=== PATIENT | male | born 1955 | race African-American/Black ===

== ENCOUNTER 2018-02-08 17:41 | Inpatient (IN) | payer OTHER ==
[~2018-02-08] VITALS: Ht 162.6 cm; Wt 51.7 kg
--- NOTE | ~2018-02-08 | EKG ---
[place] [address] [facility] [place] [address] ELECTROCARDIOGRAM REPORT Name: SINDHU DEAL Room #: 351-P ADM IN M.R.#: [id number] Admission: 02/08/18 Attend Phys: Coco Mcmullen Discharge: Date of : 53 Report #: [id number] THIS REPORT FOR: //name// [facility] ED Test Date: 2018-02-08 Test Time: 17:44:43 Pat Name: SINDHU DEAL Department: Room: Gender: M [employer]on Making Machine Operator: MAYA : 1955 Requested By: Angela Castellanos Order Number: [id number] MD: Urbano Joyner Measurements Intervals [place] Rate: 58 P: 17 WY: 222 QRS: 3 QRSD: 117 T: 244 QT: 531 QTc: 522 Interpretive Statements Sinus rhythm Prolonged WY interval Left atrial enlargement ST and T wave abnormality Prolonged QT interval No previous ECG available for comparison Electronically Signed On 02-09-2018 8:11:56 CDT by Urbano Joyner [email or web address] <ELECTRONICALLY SIGNED> By: Urbano Joyner MD, [facility] 02/09/18 0811 D: [id number] Urbano Joyner MD, [facility] /EPI
--- NOTE | ~2018-02-08 | HC ---
[facility] [place] [address] CONSULTATION Name: SINDHU DEAL Room #: 351-P ADM IN M.R.#: [id number] Admission: 02/08/18 Attend Phys: Coco Mcmullen Discharge: Date of : 53 Report #: [id number] THIS REPORT FOR: //name// CC: Coco Hidalgo REASON FOR CONSULTATION: End-stage renal disease. REASON FOR PRESENTATION: The details are very vague and those were obtained from the medical records. I will need to contact his sister. He presented with fatigue and mental status. Apparently, the patient had been living at [facility]; however, he checked himself out for about a month and family brought him back [facility] facility. Staff noted that the patient has altered mental status and thus he was brought for further evaluation and management. It is not clear to me when did the patient last dialyzed. It is also not clear to me what his baseline mental status is. On presentation, he was found to have a BUN of 163, creatinine of 19.3 and a potassium of 7.3. He was emergently dialyzed last night. I am being asked to manage his end-stage renal disease. The patient is not able to tell me about his past medical history, as I have stated. No records from [facility] were received. He was also found to be severely anemic. PAST MEDICAL HISTORY: 1. End-stage renal disease, maintained on dialysis; however, frequency is not really known, dialysis facility is not really known. 2. Hypertension. 3. Anemia. 4. COPD. 5. Neurocognitive disorder. REVIEW OF SYSTEMS: Unobtainable given the patient's mental status. FAMILY HISTORY: Unobtainable given the patient's mental status. SOCIAL HISTORY: Unobtainable given the patient's mental status. MEDICATIONS: Reported medications from the nursing facility: 1. Lisinopril: 2. Carvedilol. 3. Lasix. 4. Aspirin. 5. Plavix. PHYSICAL EXAMINATION: GENERAL: He is confused. VITAL SIGNS: Revealed a blood pressure of 160/69. Temperature 36.5. HEAD AND NECK: No jugular venous distention. Cachectic, emaciated. CARDIOVASCULAR: No rub. [facility] [address] [address] CONSULTATION Name: SINDHU DEAL Room #: 351-P [facility] IN M.R.#: [id number] Admission: 02/08/18 Attend Phys: Coco Mcmullen Discharge: Date of : 53 Report #: [id number] LUNGS: Decreased air entry bilaterally with no crackles. ABDOMEN: Soft, nontender. LOWER EXTREMITIES: No edema. LABORATORY DATA: Laboratory values reviewed. Hemoglobin 5.8. Chemistry from yesterday revealed a sodium of 137, potassium of 7.3, anion gap of 18, BUN of 163, creatinine of 19.3. IMAGING: Chest x-ray reviewed. CT head negative. ASSESSMENT, IMPRESSION AND PLAN: 1. End-stage renal disease. 2. Hypertension. 3. Anemia. 4. Hyperkalemia. 5. Anion gap acidosis. 6. Dialysis was done yesterday. We will arrange for the patient to have a dialysis treatment today. 7. I need to reach out to his sister, Gena, phone number [phone] to obtain more details about his medical history as I am not familiar with this patient. <ELECTRONICALLY SIGNED> By: Lyndon Pena MD 02/10/18 1138 [id number] [id number] Lyndon Pena MD /nt
[2018-02-08 17:43] VITALS: BP 140/55
[2018-02-08] MEDS ORDERED: IMDUR 30 MG TAB30 M1 PO (18:39)
[2018-02-08] MEDS ORDERED: PROTONIX40 M1 PO (18:39)
[2018-02-08] MEDS ORDERED: LISINOPRIL5 MG PO (18:39)
[2018-02-08] MEDS ORDERED: CRESTOR40 MG PO (18:40)
[2018-02-08] MEDS ORDERED: CARVEDILOL12.5 MG PO (18:40)
[2018-02-08] MEDS ORDERED: LASIX 20 MG TAB20 MG PO (18:40)
[2018-02-08] MEDS ORDERED: ALBUTEROL2.5 MG/31 INH (18:40)
[2018-02-08] MEDS ORDERED: ALLOPURINOL 10100 M1 PO (18:41)
[2018-02-08] MEDS ORDERED: ASPIR 8181 MG PO (18:41)
[2018-02-08] MEDS ORDERED: CELEXA20 MG PO (18:41)
[2018-02-08] MEDS ORDERED: PLAVIX 75 MG TA75 M1 PO (18:42)
[2018-02-08 18:49] LABS: ABSOLUTE NEUTROPHILS 4.1 thou/uL (1.4-8.2); BASOPHILS 0.7 % (0.0-2.0); EOSINOPHILS 2.9 % (0.0-3.0); LYMPHOCYTES 17.6 % (24.0-44.0); MCHC 33.4 g/dL (28.0-37.0); MONOCYTES 10.1 % (1.0-8.0); PLATELET COUNT 204 thou/uL (150-400); POLYS 68.7 % (36.0-66.0); RBC 1.74 mil/uL (4.50-6.00); RDW 17.1 % (10.5-14.5)
[2018-02-08 18:50] LABS: HEMOGLOBIN 5.8 gm/dL (14.0-18.0)
[2018-02-08 18:51] LABS: HEMATOCRIT 17.3 % (42.0-52.0)
[2018-02-08 19:01] LABS: CALCIUM 8.2 mg/dL (8.5-10.1); CREATININE 19.3 mg/dL (0.7-1.3)
[2018-02-08 19:03] LABS: POTASSIUM 7.3 mmol/L (3.5-5.1)
[2018-02-08 22:47] VITALS: BP 113/77
[2018-02-08 23:09] VITALS: BP 166/58
[2018-02-08 23:13] LABS: HCO3 21.1 mmol/L (22.0-26.0); PCO2 33.1 mmHg (35.0-45.0); PO2 60.4 mmHg (80.0-100.0); pH 7.422 (7.360-7.450)
[2018-02-09 02:13] VITALS: BP 161/69
[2018-02-09 07:24] VITALS: BP 171/74
[2018-02-09 07:53] LABS: HEMATOCRIT 20.8 % (42.0-52.0); HEMOGLOBIN 7.1 gm/dL (14.0-18.0); MCH 31.1 pg (26.0-34.0); MCHC 34.2 g/dL (28.0-37.0); RBC 2.28 mil/uL (4.50-6.00); RDW 22.6 % (10.5-14.5); WBC 5.7 thou/uL (4.0-11.0)
[2018-02-09 07:54] LABS: MCV 91.2 fL (80.0-100.0)
[2018-02-09 08:13] LABS: CREATININE 8.8 mg/dL (0.7-1.3); POTASSIUM 4.9 mmol/L (3.5-5.1)
[2018-02-09 15:25] VITALS: BP 172/65
[2018-02-09 19:44] VITALS: BP 167/74
[2018-02-09 21:36] VITALS: BP 167/74
[2018-02-10 02:07] LABS: HEP B SURFACE Ab(ANTI-HBS Reactive (()); HEPATITIS B SURFACE AG Negative (Negative)
[2018-02-10 04:40] VITALS: BP 159/74
[2018-02-10 07:45] VITALS: BP 137/64
[2018-02-10 12:10] VITALS: BP 139/59
[2018-02-10 12:15] VITALS: BP 139/59
[2018-02-10 16:46] VITALS: BP 140/56
[2018-02-10 19:33] VITALS: BP 152/61
[2018-02-11 05:07] LABS: HEMOGLOBIN 6.7 gm/dL (14.0-18.0); RBC 2.17 mil/uL (4.50-6.00); RDW 22.4 % (10.5-14.5)
[2018-02-11 05:14] LABS: MCH 30.8 pg (26.0-34.0); MCHC 33.4 g/dL (28.0-37.0); MCV 92.1 fL (80.0-100.0)
[2018-02-11 05:20] VITALS: BP 159/67
[2018-02-11 05:22] LABS: ALBUMIN 2.2 g/dL (3.4-5.0); CALCIUM 7.9 mg/dL (8.5-10.1); POTASSIUM 3.9 mmol/L (3.5-5.1)
[2018-02-11 05:33] LABS: CREATININE 6.4 mg/dL (0.7-1.3)
[2018-02-11 07:48] VITALS: BP 164/64
[2018-02-11 10:05] LABS: % SATURATION 11 % (20-39); IRON 20 ug/dL (65-175); TIBC 190 ug/dL (250-450)
[2018-02-11 11:22] VITALS: BP 154/65
[2018-02-11 15:09] VITALS: BP 142/63
[2018-02-11 20:20] VITALS: BP 155/77
[2018-02-12] VITALS (11 sets, daily range): BP systolic 152–174; BP diastolic 58–72
[2018-02-12 09:36] LABS: HEMATOCRIT 15.6 % (42.0-52.0); HEMOGLOBIN 5.3 gm/dL (14.0-18.0)
[2018-02-13 03:59] VITALS: BP 177/60
[2018-02-13 06:45] VITALS: BP 168/58
[2018-02-13 10:42] VITALS: BP 168/58
[2018-02-13 11:33] LABS: HEMATOCRIT 24.2 % (42.0-52.0); MCH 31.5 pg (26.0-34.0); MCHC 34.8 g/dL (28.0-37.0); MCV 90.6 fL (80.0-100.0); RBC 2.68 mil/uL (4.50-6.00); RDW 18.8 % (10.5-14.5)
[2018-02-13 11:37] LABS: HEMOGLOBIN 8.4 gm/dL (14.0-18.0)
[2018-02-13 12:38] VITALS: BP 151/71
== END 2018-02-13 16:54 | DRG 177 ==
LOC: ER 17:41 → 3W 19:38 → EROBS 19:38 → 4E 22:31 → EROBS 23:02 → 3W 02-09 02:13
PROVIDERS: Emergency Medicine; Hospitalist; Internal Medicine Nephrology; Nurse Practitioner
DX: J69.0 Pneumonitis due to inhalation of food and vomit (principal); G93.41 Metabolic encephalopathy; N18.6 End stage renal disease; J96.01 Acute respiratory failure with hypoxia; E87.2 Acidosis; I13.2 Hypertensive heart and chronic kidney disease with heart failure and with stage 5 chronic kidney disease, or end stage renal disease; E87.5 Hyperkalemia; Y95 Nosocomial condition; J44.9 Chronic obstructive pulmonary disease, unspecified; I27.20 Pulmonary hypertension, unspecified; I50.9 Heart failure, unspecified; E87.8 Other disorders of electrolyte and fluid balance, not elsewhere classified; D63.1 Anemia in chronic kidney disease; G31.84 Mild cognitive impairment of uncertain or unknown etiology; Z79.02 Long term (current) use of antithrombotics/antiplatelets; Z79.82 Long term (current) use of aspirin; Z79.899 Other long term (current) drug therapy; Z99.2 Dependence on renal dialysis; Z91.15 Patient's noncompliance with renal dialysis; Z99.81 Dependence on supplemental oxygen
CPT/HCPCS: 10879; 32100

== ENCOUNTER 2018-02-21 17:12 | Inpatient (IN) | payer OTHER ==
[~2018-02-21] VITALS: Ht 162.6 cm; Wt 59.5 kg
--- NOTE | ~2018-02-21 | EKG ---
[address] [place] [address] ELECTROCARDIOGRAM REPORT Name: SINDHU DEAL Room #: 361-P [facility] IN M.R.#: [id number] Admission: 02/21/18 Attend Phys: Coco Mcmullen Discharge: 02/22/18 Date of : 53 Report #: [id number] THIS REPORT FOR: //name// [facility] ED Test Date: 2018-02-21 Test Time: 18:12:46 Pat Name: SINDHU DEAL Department: Room: Gender: M Costing Analyst: MZOOK : 1955 Requested By: Mac Martinez Order Number: [id number] MD: Urbano Joyner Measurements Intervals [place] Rate: 63 P: -3 HI: 188 QRS: 31 QRSD: 118 T: 234 QT: 530 QTc: 543 Interpretive Statements Sinus rhythm ST and T wave abnormality Prolonged QT interval with Compared to ECG 02/08/2018 17:44:43 Intraventricular conduction delay now present No significant change was found Electronically Signed On 02-23-2018 8:36:55 CDT by Urbano Joyner [email or web address] <ELECTRONICALLY SIGNED> By: Urbano Joyner MD, [facility] 02/23/18 0836 11 11 Urbano Joyner MD, [facility] /EPI
--- NOTE | ~2018-02-21 | HC ---
[facility] [place] [address] CONSULTATION Name: SINDHU DEAL Room #: 361-P [facility] [place] M.R.#: [id number] Admission: 02/21/18 Attend Phys: Coco Mcmullen Discharge: 02/22/18 Date of : 53 Report #: [id number] THIS REPORT FOR: //name// CC: Allan Monulnyla DATE OF SERVICE: 02/21/2018 REASON FOR CONSULTATION: End-stage renal disease. HISTORY OF PRESENT ILLNESS: This is a 62-year-old male who presented to the Emergency Room today. He apparently lives at [facility]. He has not been getting his dialysis. He apparently has had some mental status changes and came in through the Emergency Room. We are called to see him and help arrange dialysis. The patient has end-stage renal disease and been on dialysis for some time. The exact duration is unknown to me. He was just in the hospital a couple of weeks ago from February 08 through February 13. During that time, he received 3 or 4 dialysis sessions as he had not been dialyzing for some time prior to that admission. All of his parameters improved including his volume status, blood pressure, hyperkalemia and his labs. The patient today tells me he has not dialyzed since he left the hospital on February 13. That now makes it 8 days. He apparently has been staying at [facility]. He thinks his dialysis unit is [facility], but it sounds like that he has not actually been dialyzing there. If I recall correctly, he has had numerous social issues and behavioral issues at numerous dialysis units around the town making chronic dialysis very difficult thing for him to obtain. He denies dyspnea. PAST MEDICAL HISTORY: End-stage renal disease, hypertension, anemia. LISTED MEDICATIONS: Include allopurinol 100 mg daily, aspirin 81 mg daily, carvedilol 12.5 mg b.i.d., citalopram 20 mg daily, Plavix 75 mg daily, furosemide 20 mg daily, isosorbide mononitrate 30 mg daily, lisinopril 5 mg daily, pantoprazole 40 mg daily and Crestor 40 mg daily. ALLERGIES: No known medical allergies. SOCIAL HISTORY: The patient has been apparently living at [facility]. REVIEW OF SYSTEMS: He is unhelpful in getting answers on that. Denies current pain. Has some dyspnea. No nausea or vomiting. PHYSICAL EXAMINATION: GENERAL: A 62-year-old male seen in the Emergency Room. VITAL SIGNS: Blood pressure 155/71, heart rate 64, temperature 97.5 degrees Fahrenheit and oxygen saturation 100%. [place] [address] CONSULTATION Name: SINDHU DEAL Room #: 361-P [facility] [place] M.R.#: [id number] Admission: 02/21/18 Attend Phys: Coco Mcmullen Discharge: 02/22/18 Date of : 53 Report #: [id number] HEENT: Shows pupils are equal and reactive. Sclerae nonicteric. Oral mucosa is moist. NECK: Shows distended jugular vein, more prominent on the right than left. CHEST: Shows decreased breath sounds right base with dullness, left side fairly clear. HEART: Has a regular rate and rhythm, no gallop or rub. ABDOMEN: Has active bowel sounds, soft, nontender. EXTREMITIES: 2+ bilateral lower extremity edema. He has a left upper arm AV dialysis graft with an active bruit. LABORATORY DATA: Sodium 132, potassium 6.2, chloride 97, bicarb 18, BUN 118, creatinine 12.9, glucose 95, calcium 8.4, phosphorus 6.5, magnesium 2.7, hemoglobin 7.9, hematocrit 23.9, white count 5.1, platelets 245,000. ASSESSMENT: 1. End-stage renal disease. He is uremic again. It sounds like he has not dialyzed in at least 8 days. Unfortunately, he does not have a chronic dialysis unit where he goes or where he has been able to stay, at least so that I can tell. This is a great social issue. In the meantime, he needs dialysis. We will plan on dialyzing him first thing in the morning. We will probably need to dialyze him several days in a row as we did last time he was in just a week ago. 2. Hyperkalemia related to end-stage renal disease and lack of dialysis. He is not showing any EKG changes. He has already gotten albuterol. Again, we will remove potassium at dialysis tomorrow. 3. Hypertension. PLAN: 1. Dialysis in the morning. We have ordered that. 2. He will need to further work from social workers and discharge planners to hopefully be able to find him a place to do chronic dialysis. 3. We will follow along the care of this patient. <ELECTRONICALLY SIGNED> By: Perry Quiroz MD 02/26/18 0729 02 1541 Perry Quiroz MD /nt
[~2018-02-21 17:12] MED LIST: ALBUTEROL2.5 MG/31 INH; ALLOPURINOL 10100 M1 PO; ASPIR 8181 MG PO; CARVEDILOL12.5 MG PO; CELEXA20 MG PO; CRESTOR40 MG PO; IMDUR 30 MG TAB30 M1 PO; LASIX 20 MG TAB20 MG PO; LISINOPRIL5 MG PO; PLAVIX 75 MG TA75 M1 PO; PROTONIX40 M1 PO
[2018-02-21 17:15] VITALS: BP 157/55
[2018-02-21 19:04] LABS: HEMATOCRIT 23.9 % (42.0-52.0); HEMOGLOBIN 7.9 gm/dL (14.0-18.0); MCH 31.7 pg (26.0-34.0); MCHC 32.9 g/dL (28.0-37.0); MCV 96.5 fL (80.0-100.0); PLATELET COUNT 245 thou/uL (150-400); RBC 2.48 mil/uL (4.50-6.00); RDW 20.2 % (10.5-14.5); WBC 5.1 thou/uL (4.0-11.0)
[2018-02-21 19:23] LABS: CALCIUM 8.4 mg/dL (8.5-10.1); CREATININE 12.9 mg/dL (0.7-1.3)
[2018-02-21 19:26] LABS: POTASSIUM 6.2 mmol/L (3.5-5.1)
[2018-02-21 19:27] LABS: MAGNESIUM 2.7 mg/dL (1.8-2.4); PHOSPHORUS 6.5 mg/dL (2.5-4.9)
[2018-02-21 19:47] LABS: ABSOLUTE NEUTROPHILS 3.3 thou/uL (1.4-8.2)
[2018-02-21 19:48] LABS: ANISOCYTOSIS 2+; POLYCHROMASIA SLIGHT; SCHISTOCYTES OCCASIONAL
[2018-02-21 22:33] VITALS: BP 155/71
[2018-02-21 23:45] VITALS: BP 158/68
[2018-02-22 04:07] VITALS: BP 172/74
[2018-02-22 05:44] VITALS: BP 146/62
[2018-02-22 05:49] LABS: HEMATOCRIT 20.1 % (42.0-52.0); HEMOGLOBIN 6.9 gm/dL (14.0-18.0); MCH 32.4 pg (26.0-34.0); MCHC 34.1 g/dL (28.0-37.0); MCV 95.1 fL (80.0-100.0); RBC 2.12 mil/uL (4.50-6.00); RDW 20.3 % (10.5-14.5); WBC 4.4 thou/uL (4.0-11.0)
[2018-02-22 05:58] LABS: CREATININE 13.2 mg/dL (0.7-1.3); MAGNESIUM 2.6 mg/dL (1.8-2.4); PHOSPHORUS 6.8 mg/dL (2.5-4.9)
[2018-02-22 06:20] LABS: POTASSIUM 6.5 mmol/L (3.5-5.1)
[2018-02-22 07:49] VITALS: BP 164/78
== END 2018-02-22 12:31 | DRG 291 ==
LOC: ER 17:12 → 3W 20:39 → EROBS 20:39 → 3W 23:22
PROVIDERS: Emergency Medicine; Nurse Practitioner Family
PROC: 5A1D70Z Performance of Urinary Filtration, Intermittent, Less than 6 Hours Per Day (ICD-10-PCS; principal; 2018-02-22)
DX: I13.0 Hypertensive heart and chronic kidney disease with heart failure and stage 1 through stage 4 chronic kidney disease, or unspecified chronic kidney disease (principal); N18.6 End stage renal disease; G93.40 Encephalopathy, unspecified; E87.5 Hyperkalemia; I50.9 Heart failure, unspecified; J44.9 Chronic obstructive pulmonary disease, unspecified; I27.20 Pulmonary hypertension, unspecified; F17.210 Nicotine dependence, cigarettes, uncomplicated; E78.5 Hyperlipidemia, unspecified; D64.9 Anemia, unspecified; R41.9 Unspecified symptoms and signs involving cognitive functions and awareness; Z79.899 Other long term (current) drug therapy; Z91.14 Patient's other noncompliance with medication regimen; Z88.0 Allergy status to penicillin
CPT/HCPCS: 10879; 32100